=== PATIENT | male | born 1995 | race Caucasian/White ===

== ENCOUNTER 2020-10-31 15:23 | Emergency (ER) | payer OTHER ==
[2020-10-31 21:16] LABS: BASOPHIL 0.6 % (0-2); EOSINOPHIL 3.7 % (0-5); HCT 41.1 % (42.0-52.0); HGB 14.6 g/dl (13.2-18.0); LYMPHOCYTE 34.4 % (15-48); MCH 30.6 pg (25.0-31.0); MCHC 35.5 g/dL (32.0-36.0); MCV 86.2 fL (78.0-100.0); MONOCYTE 9.1 % (0-12); MPV 9.7 fL (6.0-9.5); NEUTROPHIL 51.9 % (41-80); NRBC 0; PLT 192 K/uL (150-400); RBC 4.77 M/uL (4.70-6.00); RDW 12.2 % (11.5-14.0); WBC 9.5 K/uL (4.0-10.5)
[2020-10-31 21:35] LABS: ALBUMIN 3.5 g/dL (3.4-5.0); BILIRUBIN - TOTAL 0.9 mg/dL (0.2-1.0); BUN/CREAT RATIO (CALC) 10.1 RATIO; CREATININE 0.89 mg/dL (0.67-1.17); GLOBULIN (CALCULATION) 2.9 g/dL; POTASSIUM 3.7 mmol/L (3.5-5.1); TOTAL PROTEIN 6.4 g/dL (6.4-8.2)
== END 2020-10-31 21:40 | disposition home or self-care (01) ==
LOC: FER 15:23
PROVIDERS: Nurse Practitioner Family
DX: T67.5XXA Heat exhaustion, unspecified, initial encounter (principal)
CPT/HCPCS: 36415; 71045; 80053; 85025; J7030